=== PATIENT | male | born 1975 | race Caucasian/White ===

== ENCOUNTER 2024-06-11 04:55 | Day surgery (SDC) | payer OTHER ==
[2024-06-08 10:14] VITALS: BMI 43.2
[2024-06-11 09:26] VITALS: PULSE 76; RESP 16
[2024-06-11 09:31] VITALS: BP 119/84; TEMP 97.7
== END 2024-06-11 09:45 | disposition home or self-care (01) ==
LOC: JASU-ENDO 04:55
PROVIDERS: ATTEND Student in an Organized Health Care Education/Training Program
PROC: 0DJD8ZZ Inspection of Lower Intestinal Tract, Via Natural or Artificial Opening Endoscopic (ICD-10-PCS; principal; 2024-06-11 08:30)
DX: Z12.11 Encounter for screening for malignant neoplasm of colon (principal); K64.8 Other hemorrhoids